=== PATIENT | male | born 1965 | race Caucasian/White ===

== ENCOUNTER → 2016-06-03 | Outpatient (CLI) | payer OTHER | LOC: SUN.DIA 06-02 15:51 | DX: E11.65 Type 2 diabetes mellitus with hyperglycemia (principal); E66.9 Obesity, unspecified; Z79.84 Long term (current) use of oral hypoglycemic drugs; Z68.36 Body mass index [BMI] 36.0-36.9, adult; Z71.3 Dietary counseling and surveillance; E78.5 Hyperlipidemia, unspecified | CPT/HCPCS: G0108 ==

== ENCOUNTER → 2016-06-09 | Outpatient (CLI) | payer OTHER | LOC: SUN.DIA 11:46 | DX: E11.65 Type 2 diabetes mellitus with hyperglycemia (principal); E66.9 Obesity, unspecified; Z71.3 Dietary counseling and surveillance; Z79.84 Long term (current) use of oral hypoglycemic drugs; E78.5 Hyperlipidemia, unspecified; I10 Essential (primary) hypertension | CPT/HCPCS: G0109 ==

== ENCOUNTER → 2016-06-16 | Outpatient (CLI) | payer OTHER | LOC: SUN.DIA 11:14 | DX: Y99.9 Unspecified external cause status (principal) ==

== ENCOUNTER → 2018-03-14 | Outpatient (CLI) | payer OTHER | LOC: COL.RAD 08:29 | DX: R10.11 Right upper quadrant pain (principal); R16.0 Hepatomegaly, not elsewhere classified ==

== ENCOUNTER 2020-09-25 09:11 | Outpatient (RCR) | payer BC ==
[~2020-09-25] VITALS: Ht 167.6 cm; Wt 106.0 kg
[2020-09-25 11:20] VITALS: BP 131/70; PULSE 67; TEMP 98.5
[2020-09-25 11:35] VITALS: BP 123/59; PULSE 66; TEMP 98.5
[2020-09-25] MEDS ORDERED: QBRELIS1 MG/1 ML PO (11:46)
[2020-09-25] MEDS ORDERED: GLUCOPHAGE1000 MG PO (11:46)
[2020-09-25] MEDS ORDERED: AMARYL4 MG PO (11:47)
[2020-09-25] MEDS ORDERED: LANTUS SOLOS100 U/ML SQ (11:47)
[2020-09-25] MEDS ORDERED: ASPIRIN E.C. 8181 MG PO (11:48)
[2020-09-25] MEDS ORDERED: CRESTOR5 MG PO (11:48)
[2020-09-25] MEDS ORDERED: MASON NATURAL500 MG PO (11:49)
[2020-09-25] MEDS ORDERED: EPA FISH OIL1 SGL PO (11:49)
[2020-09-25] MEDS ORDERED: TURMERIC500 MG PO (11:50)
[2020-09-25 12:05] VITALS: BP 152/70; PULSE 65; TEMP 98.5
[2020-09-25 13:05] VITALS: BP 145/74; PULSE 68; TEMP 98.2
== END 2020-09-25 13:55 | disposition home or self-care (01) ==
LOC: EUO 09:11
DX: D50.9 Iron deficiency anemia, unspecified (principal)
CPT/HCPCS: J7050; P9016